=== PATIENT | male | born 1945 | race Caucasian/White ===

== ENCOUNTER 2019-09-05 14:18 | Outpatient (CLI) | payer MEDICARE ==
--- NOTE | 2019-09-05 15:01 | CT ---
Exam: Head CT without contrast HISTORY: Dizziness. Repeated falls. COMPARISON: 04/28/2018 FINDINGS: Hemorrhage: No intraparenchymal hemorrhage or extra-axial hematoma. Brain parenchyma: Cortical pierce-white matter differentiation is preserved. No mass effect or midline shift. Basilar cisterns are patent.Confluent white matter hypodensities due to chronic small vessel ischemic change. Ventricular system: Ventricles and sulci are patent and symmetric. Calvarium: Intact. Sinuses and mastoid air cells: Adequate aeration. IMPRESSION: 1. No acute intracranial posttraumatic sequelae. 2. Chronic small vessel ischemic changes of the white matter.
== END 2019-09-05 14:19 | disposition home or self-care (01) ==
LOC: MADCT 14:18
PROVIDERS: ATTEND Physician Assistant
DX: R29.6 Repeated falls (principal); I67.82 Cerebral ischemia
CPT/HCPCS: 70450

== ENCOUNTER 2019-10-25 14:18 | Outpatient (CLI) | payer MEDICARE ==
[2019-10-25 14:57] LABS: Anion Gap 18 mmol/L (10-20); BUN (Urea Nitrogen) 13 mg/dL (8.4-25.7); Calc. Creatinine Clearance 0 mL/min (70-130); Calcium 9.3 mg/dL (7.8-10.44); Carbon Dioxide 19 mmol/L (23-31); Chloride 106 mmol/L (98-107); Estimated GFR-MDRD 42; Glucose 145 mg/dL (83-110); Phosphorus 3.2 mg/dL (2.3-4.7); Potassium 4.3 mmol/L (3.5-5.1); Sodium 139 mmol/L (136-145)
== END 2019-10-25 14:19 | disposition home or self-care (01) ==
LOC: MADLAB 14:18
PROVIDERS: ATTEND Internal Medicine Nephrology
DX: I12.9 Hypertensive chronic kidney disease with stage 1 through stage 4 chronic kidney disease, or unspecified chronic kidney disease (principal); N18.3 Chronic kidney disease, stage 3 (moderate)
CPT/HCPCS: 36415; 80048; 82306; 83970; 84100